=== PATIENT | male | born 1985 | race Two or more races ===

== ENCOUNTER 2017-03-29 00:17 | Emergency (ER) | payer OTHER ==
[~2017-03-29] VITALS: Ht 167.6 cm; Wt 95.3 kg
[~2017-03-29 00:17] MED LIST: LIS10T PO; METF-372 PO; SIMV-8 PO
[2017-03-29 00:52] LABS: Basophils # (auto) 0 uL; Basophils % (auto) 0.4 % (0.0-2.0); Eosinophils # (auto) 0.1 uL; Eosinophils % (auto) 0.9 % (0.0-7.0); Hematocrit 39.4 % (41.0-53.0); Mean Corpuscular Hemoglobin 29.9 pg (28.0-32.0); Mean Corpuscular Volume 90.7 fL (80.0-100.0); Monocytes # (auto) 0.7 uL; Monocytes % (auto) 9.5 % (0.0-12.0); Neutrophils # (auto) 3.5 uL; Neutrophils % (auto) 48.2 % (37.0-80.0); Platelet Count (auto) 280 10^3/uL (140-450); Red Cell Distribution Width 11.6 % (11.6-16.0); White Blood Cell 7.3 10^3/uL (4.4-10.8)
[2017-03-29 05:00] LABS: INR 0.92 (0.9-1.15); Partial Thromboplastin Time 24.7 sec (22.64-33.71)
[2017-03-29 06:37] LABS: Albumin 3.2 g/dL (3.4-5.0); BUN/Creatinine Ratio 10.3; Calcium 8.9 mg/dL (8.5-10.1); Total Protein 7.8 g/dL (6.4-8.2)
[2017-03-29] MEDS ORDERED: SODIUM CHLORIDE 0.9% 1,000 ML IV ONE (07:33)
[2017-03-29] MEDS ORDERED: InsuLIN REG 1unit/0.01ml Soln (100units/ml) IV ONE ×2 (07:45→15:00)
[2017-03-29 11:09] LABS: Urine Bilirubin Negative (Negative); Urine Blood TRACE /uL (Negative); Urine Color Yellow (Yellow); Urine Nitrite Negative (Negative); Urine RBC 37 /hpf (0 - 3); Urine Squamous Epithelial Cell FEW /hpf (<5); Urine Urobilinogen Normal (Negative)
[2017-03-29 11:11] LABS: Urine Glucose 4+ mg/dL (Normal); Urine Ketone 2+ (Negative)
[2017-03-29] MEDS ORDERED: cefTRIAXone 1GM/50ML D5W 50 ML IV ONE (12:00)
[2017-03-29 16:42] VITALS: BP 101/54
== END 2017-03-29 17:11 | disposition home or self-care (01) ==
LOC: ER 00:19
DX: E11.9 Type 2 diabetes mellitus without complications (principal); N39.0 Urinary tract infection, site not specified; E66.01 Morbid (severe) obesity due to excess calories; E46 Unspecified protein-calorie malnutrition; I10 Essential (primary) hypertension; Z68.33 Body mass index [BMI] 33.0-33.9, adult
CPT/HCPCS: 36415; 71020; 80053; 81001; 82010; 82962; 83036; 83735; 84443; 85025; 85610; 85730; 93005; 96361; 96365; 96375; 99285; J0696; J1815